=== PATIENT | female | born 1945 | race Caucasian/White ===

== ENCOUNTER → 2022-06-02 15:37 | Outpatient (CLI) | payer SELFPAY ==
--- NOTE | 2022-06-02 15:45 | XR_ITS ---
FINAL REPORT CLINICAL HISTORY: SWALLOWED DENTAL BUR COMPARISON: none FINDINGS: PA and lateral views of the chest were obtained. There is no prior exam for comparison. The cardiac and mediastinal silhouettes are within normal limits. Emphysema is noted. The lungs are otherwise clear. There is no pleural effusion or pneumothorax. No acute osseous abnormality is identified. No metallic foreign body identified. IMPRESSION: No radiographic evidence of acute cardiac or pulmonary disease. No metallic foreign body identified. Reviewed, Interpreted and Dictated by Yuko Sanchez MD Transcribed by Marie Miranda Authenticated and . [facility]
--- NOTE | 2022-06-02 15:45 | XR_ITS ---
FINAL REPORT CLINICAL HISTORY: SWALLOWED DENTAL BUR COMPARISON: None FINDINGS: NECK SOFT TISSUE Two views of the neck using soft tissue technique show a normal appearance of the epiglottis. No abnormal narrowing of the larynx is seen. There is no ballooning of the hypopharynx. There is no retropharyngeal soft tissue swelling. No abnormal gas collections are present. No metallic foreign body identified. The precervical soft tissues are normal. 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 IMPRESSION: Unremarkable neck exam using soft tissue technique. No foreign body identified. Reviewed, Interpreted and Dictated by Yuko Sanchez MD Transcribed by Marie Miranda Authenticated and [facility]
== END ==
DX: Z03.821 Encounter for observation for suspected ingested foreign body ruled out (principal)
CPT/HCPCS: 70360; 71046

== ENCOUNTER 2022-08-07 21:50 | Emergency (ER) | payer SELFPAY ==
[2022-08-07 21:58] VITALS: BP 191/104; PULSE 69; RESP 15; TEMP 36.8; O2SAT 97; BMI 18.8
[2022-08-07 22:24] LABS: Basophils % 0.3 % (0.1-2.0); Eosinophils # 0.3 K/mm3 (0.0-0.4); Eosinophils % 2.8 % (0.1-12.0); Hematocrit 34.7 % (37.0-47.0); Hemoglobin 11.7 g/dL (12.2-16.2); Lymphocytes # 1.3 K/mm3 (0.7-4.5); Mean Corpuscular HGB Conc 33.8 g/dL (31.8-35.4); Mean Corpuscular Hemoglobin 31.5 pg (27.0-31.2); Mean Corpuscular Volume 93.2 fl (81-99); Mean Platelet Volume 8.7 fl (7.4-10.4); Monocytes # 0.7 K/mm3 (0.1-1.0); Monocytes % 7.2 % (1.7-9.3); Neutrophils # 7.6 K/mm3 (1.8-7.8); Neutrophils % 76.7 % (37.0-80.0); Platelet Count 286 K/mm3 (142-424); Red Blood Count 3.72 M/mm3 (4.20-5.40); White Blood Count 9.9 K/mm3 (4.8-10.8)
--- NOTE | 2022-08-07 22:24 | HMH.EDANIB ---
Discharge Plan Disposition Patient Disposition: Home, Self-Care Prescriptions Prescriptions: New amoxicillin-pot clavulanate [Augmentin] 500-125 mg tablet 1 tab PO BID Qty: 20 0RF Referrals Follow up/Referrals: Provider,Referral, MD [Primary Care Provider] - See instructions Clinical Impressions Clinical Impression: Dog bite, Infection of hand Instructions Patient Instructions: Animal Bites Discharge ED Provider: Geovanna (ED)Irineo Animal Bite HPI General Chief Complaint: Animal Bite Stated Complaint: AO 08/04 Dog bite to right hand and swollen Time Seen by Provider: 08/07/22 22:24 Mode of Arrival: Family Vehicle Source of Information: Patient and Medical Record Limitations: No Limitations Description of Symptoms (Recalled from ER Triage Doc. by RN): 77 YO FEMALE PRESENTS WITH CC OF S/P DOG BITE AND CURRENTLY WITH SWOLLEN HAND, RIGHT SIDE. PT IS RIGHT HAND DOMINANT, AND ACTIVELY EMPLOYED A NURSE. A&OX X 4; PATIENT REPORTS 'I ATTEMPTED TO HELP A FRIEND WITH HER DOG BY CLIPPING IT'S NAILS, AND THE DOG BIT ME . PT REPORTS PUNCTURE WOUNDS TO TOP OF HAND X 3, 1 TO PALMAR SIDE. AFEBRILE. STATES SHE IMMEDIATELY BEGAN TAKING KEFLEX 500MG TWICE DAILY (THAT SHE HAD LEFTOVER AT HOME); AND PUTTING BACITRACIN/NEOSPORIN ON THE WOUND DIRECTLY. BEGAN EXPERIENCING SEROSANGUINOUS DRAINAGE, NOW HAS PROGRESSED TO PURULENT DRAINAGE. UTD ON IMMUNIZATIONS PER HER STATEMENT. HAD FULL ROM PRIOR TO THE SWELLING, NOW THE PAIN IS RATING 10/10. History of Present Illness HPI narrative: dog bite to dorsum of rt hand on sunday and now with swelling and drainage and tenderness - able to move fingers - inc warmth - MD complaint: animal bite Onset (ago): day(s) Animal: dog Description of animal: appeared well Mechanism: bite Right: hand Context: other (trimming dog nails ) Associated symptoms: discharge from wound Related Data Patient tetanus UTD: Yes Previous Rx's Medication Instructions Recorded amoxicillin 500 mg-potassium 1 tab PO BID #20 tabs 08/07/22 clavulanate 125 mg tablet (Augmentin) Allergies Allergy/AdvReac Type Severity Reaction Status Date / Time No Known Allergies Allergy Verified 08/07/22 22:07 [facility] Disclaimer: The information contained in this section may have been updated after the patient was seen, as this information can be updated by other users. Social History Smoking Status: Unknown if ever smoked alcohol intake: never current occupational status: employed Travel in the last 8 weeks: None ROS Obtained: Yes All systems reviewed & no additional complaints except as documented Physical Exam General General appearance: alert Head Head exam: normocephalic Eye Eye exam: Present PERRL and EOMI ENT ENT exam: Present mucous membranes moist Neck Neck exam: Present trachea midline Respiratory Respiratory exam: Absent respiratory distress Cardiovascular Cardiovascular exam: Present regular rate Abdominal Exam Abdominal exam: Present soft Expanded Upper Extremity Exam Right: Hand exam: Present tenderness, swelling, erythema and other (dog bite rt hand with drainage and reddness ) Vascular exam: Normal radial pulse Neurological Exam Neurological exam: Present alert and CN II-XII intact Skin Skin exam: Present other (infected rt hand ) Medical Decision Making Medical Records Medical records reviewed: Yes I reviewed the patient's medical records. [place] Inquiry Pt receiving controlled substance: No Vital Signs: 08/07/22 21:58 Temperature 98.2 F Temperature Source Oral Pulse Rate [Right Brachial] 69 Respiratory Rate 15 Blood Pressure [Right Arm] 191/104 H Blood Pressure Mean [Right Arm] 133 Blood Pressure Source [Right Arm] Automatic Cuff Blood Pressure Position [Right Arm] Sitting 02 Sat by Pulse Oximetry 97 Oxygen Delivery Method Room Air Lab Data Lab results reviewed: Yes I reviewed the patient's lab results. Lab Results 08/07/22 22:00:
[2022-08-07 22:48] LABS: Chloride 100 mmol/L (98-107); Potassium 3.6 mmoL/L (3.5-5.1); Sodium 136 mmol/L (136-145)
[2022-08-07 22:50] LABS: Blood Urea Nitrogen 21 mg/dl (7-17); Creatinine Clearance Estimated 38 mL/min (50-200); Estimated Glomerular Filt Rate 97 ml/min (>60); GFR (African American) 118 ML/MIN (>60)
[2022-08-07 22:51] LABS: Alanine Aminotransferase 27 U/L (12-78); Albumin Level 4.1 g/dl (3.5-5.0); Albumin/Globulin Ratio 1.2 (1.1-1.8); Alkaline Phosphatase 83 U/L (38-126); Anion Gap 9.6 mEq/L (5-15); Aspartate Amino Transferase 33 U/L (14-36); Bilirubin,Total 0.4 mg/dl (0.2-1.3); Calcium 10.5 mg/dl (8.4-10.2); Carbon Dioxide 30 mmol/L (22.0-30.0); Globulin 3.3 g/dL (1.3-3.2); Glucose 107 mg/dl (74-100); Total Protein,Serum 7.4 g/dl (6.3-8.2)
[2022-08-07 23:06] VITALS: BP 125/75; PULSE 79; RESP 19; TEMP 37.1; O2SAT 99
[2022-08-07 23:21] LABS: Erythrocyte Sedimentation Rate 117 mm/hr (0-30)
== END 2022-08-07 23:16 | disposition home or self-care (01) ==
PROVIDERS: Emergency Provider Emergency Medicine
DX: L08.9 Local infection of the skin and subcutaneous tissue, unspecified (principal); S61.431S Puncture wound without foreign body of right hand, sequela; W54.0XXS Bitten by dog, sequela
CPT/HCPCS: 80053; 83605; 85025; 85651; 86140; 87040; 87070; 87205; 96374; 99285